=== PATIENT | female | born 1945 | race Caucasian/White ===

== ENCOUNTER 2023-08-06 11:30 | Emergency (ER) | payer MEDICARE, SELFPAY ==
[2023-08-06] VITALS (8 sets, daily range): BP systolic 75–115; BP diastolic 38–64; PULSE 52–88; RESP 11–20; TEMP 36.1–36.7; O2SAT 95–97; BMI 22.4
--- NOTE | 2023-08-06 11:27 | ECG_ITS ---
APPROVED REPORT Exam: Resting ECG HR:48 bpm ECG Measurements Heart Rate 48 AXES QRSd 153 QRS -25 QT 518 T 68 QTc 484 Conclusion ATRIAL FIBRILLATION WITH SLOW VENTRICULAR RESPONSE LEFT BUNDLE BRANCH BLOCK [120+ ms QRS DURATION, 80+ ms Q/S IN V1/V2, 85+ ms R IN I/aVL/V5/V6] ABNORMAL ECG UNCONFIRMED REPORT Electronically signed by : Anderson Rendon MD 08/07/2023 19:42:44
--- NOTE | 2023-08-06 11:39 | PC.NURSE ---
Dr. Mariee at BS for pt eval
--- NOTE | 2023-08-06 11:45 | PC.NURSE ---
DR PACHECO AT BEDSIDE
--- NOTE | 2023-08-06 11:54 | PC.NURSE ---
pt given glass of water
--- NOTE | 2023-08-06 11:58 | XR_ITS ---
PROCEDURE INFORMATION: Exam: XR Chest Exam date and time: 08/06/2023 12:20 PM Age: 77 years old Clinical indication: Other: Syncope TECHNIQUE: Imaging protocol: Radiologic exam of the chest. Views: 1 view. COMPARISON: No relevant prior studies available. FINDINGS: Lungs: Unremarkable. No consolidation. Pleural spaces: Unremarkable. No pleural effusion. No pneumothorax. Heart/Mediastinum: Aortic atherosclerosis. No cardiomegaly. Bones/joints: Unremarkable. IMPRESSION: No acute findings.
--- NOTE | 2023-08-06 11:59 | HMH.EDGENADL ---
Discharge Plan Disposition Patient Disposition: Home, Self-Care Condition: Good Activity Restrictions/Add. Instructions Additional Instructions/Restrictions: Please follow-up with your primary care provider.Please return to the emergency department if you experience any new or worsening symptoms. Clinical Impressions Clinical Impression: Syncope due to orthostatic hypotension Instructions Patient Instructions: DI for Syncope in Adults (Fainting), DI for Syncope in Children (Fainting) Discharge ED Provider: Wilfred Mariee Adult HPI General Chief complaint: Syncope Stated complaint: hypotension Time Seen by Provider: 08/06/23 11:56 Mode of Arrival: EMS Source of Information: Patient and EMS Limitations: No Limitations Description of Symptoms (Recalled from ER Triage Doc. by RN): PT BROUGHT IN VIA EMS, SYNCOPAL EPISODE WITH HYPOTENSION AND BRADYCARDIA. PT REPORTS SIMILAR EPISODES THIS WEEKEND. PT REPORTS NEW CHANGES IN BLOOD PRESSURE MEDS RECENTLY. PT DENIES CHEST PAIN, REPORTS SHORTNESS OF BREATH History of Present Illness HPI narrative: The patient presents with a chief complaint of low blood pressure and dizziness. She reports experiencing dizziness after climbing a set of stairs and taking a while to recover. Despite lying down, she continued to experience symptoms of low blood pressure. The patient lost consciousness while talking to an attendant and had a weak pulse. The patient has a history of blood pressure issues for the last four months. She has undergone two 24-hour urine collections and was suspected to have Vick's disease, which was later ruled out. 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 She has been in communication with an bowling ball engraver and is also a stage 3 kidney patient. The patient has bladder cancer and is currently undergoing chemotherapy. The patient's blood pressure has been stable this month, but she has been mostly resting. There have been no recent changes in her medication doses. She had a tumor removed and then had her first 24-hour urine collection, which revealed a high norepinephrine level of 800. A steroid pill and blood draw showed normal cortisol levels, but the cause of her blood pressure fluctuations remains unknown. The patient took her morning medications and subsequently lost consciousness for a few minutes, feeling woozy afterward. She denies experiencing palpitations or chest pain but reports feeling thirsty and woozy. Her current heart rate is 56. Related Data Allergies Allergy/AdvReac Type Severity Reaction Status Date / Time Sulfa (Sulfonamide Allergy Verified 08/06/23 11:42 Antibiotics) [facility] Disclaimer: The information contained in this section may have been updated after the patient was seen, as this information can be updated by other users. Social History Smoking Status: Never smoker alcohol intake: former year quit: [employer] current occupational status: retired Travel in the last 8 weeks: None ROS Obtained: Yes Systems reviewed as appropriate & no additional complaints except as documented As per HPI Physical Exam General General appearance: alert, in no apparent distress and other (Drowsy but arousable on initial assessment) Head Head exam: atraumatic and normocephalic Eye Eye exam: Present normal appearance Neck Neck exam: Present normal inspection Chest Chest inspection: Present normal inspection and symmetric chest wall rise Respiratory Respiratory exam: Present normal lung sounds bilaterally; Absent respiratory distress Cardiovascular Cardiovascular exam: Present regular rate and bradycardia Abdominal Exam Abdominal exam: Present soft Extremities Exam Extremities exam: Present other (No cervical spinal tenderness) Neurological Exam Neurological exam: Present alert and oriented X3 Psychiatric Psychiatric exam: Present normal affect and normal mood Skin Skin exam: Present warm and d
--- NOTE | 2023-08-06 12:04 | PC.NURSE ---
XR AT BEDSIDE
[2023-08-06 12:07] LABS: Basophils % 0.4 % (0.1-2.0); Eosinophils # 0.1 K/mm3 (0.0-0.4); Eosinophils % 2.2 % (0.1-12.0); Hematocrit 30.9 % (37.0-47.0); Hemoglobin 9.8 g/dL (12.2-16.2); Lymphocytes # 1.5 K/mm3 (0.7-4.5); Lymphocytes % 33.8 % (10-50); Mean Corpuscular HGB Conc 31.9 g/dL (31.8-35.4); Mean Corpuscular Hemoglobin 29.9 pg (27.0-31.2); Mean Corpuscular Volume 93.8 fl (81-99); Mean Platelet Volume 7.6 fl (7.4-10.4); Monocytes # 0.1 K/mm3 (0.1-1.0); Monocytes % 2.5 % (1.7-9.3); Neutrophils # 2.8 K/mm3 (1.8-7.8); Neutrophils % 61.1 % (37.0-80.0); Platelet Count 298 K/mm3 (142-424); Red Blood Count 3.29 M/mm3 (4.20-5.40); Red Cell Distribution Width 14.4 % (11.5-17.5); White Blood Count 4.6 K/mm3 (4.8-10.8)
[2023-08-06 12:08] LABS: Chloride 102 mmol/L (98-107); Potassium 4.7 mmoL/L (3.5-5.1); Sodium 129 mmol/L (136-145)
[2023-08-06 12:11] LABS: Alanine Aminotransferase 31 U/L (12-78); Albumin Level 3.3 g/dl (3.5-5.0); Albumin/Globulin Ratio 1.4 (1.1-1.8); Alkaline Phosphatase 60 U/L (38-126); Anion Gap 11.7 mEq/L (5-15); Aspartate Amino Transferase 26 U/L (14-36); Bilirubin,Total 0.6 mg/dl (0.2-1.3); Blood Urea Nitrogen 18 mg/dl (7-17); Carbon Dioxide 20 mmol/L (22.0-30.0); Creatinine Clearance Estimated 29 mL/min (50-200); Estimated Glomerular Filt Rate 33 ml/min (>60); GFR (African American) 41 ML/MIN (>60); Globulin 2.4 g/dL (1.3-3.2); Phosphorous 4.9 mg/dl (2.5-4.5); Total Protein,Serum 5.7 g/dl (6.3-8.2)
[2023-08-06 12:12] LABS: Calcium 7.7 mg/dl (8.4-10.2); Glucose 123 mg/dl (74-100); Magnesium 1.7 mg/dl (1.6-2.3)
--- NOTE | 2023-08-06 12:23 | PC.NURSE ---
Pt provided with pillow for comfort
--- NOTE | 2023-08-06 12:25 | PC.NURSE ---
notified ER MD Mariee of pt reporting nausea, verbal order for zofran obtained per IV.
[2023-08-06 12:29] LABS: Free T4 (Free Thyroxine) 1.67 ng/dl (0.78-2.19)
--- NOTE | 2023-08-06 12:29 | PC.NURSE ---
pt medicated per DEC emesis bag available at BS to PT, call light in reach. pt had cool rag on forehead pt family at BS
[2023-08-06 12:34] LABS: Troponin I < 0.01 ng/ml (0.00-0.034)
--- NOTE | 2023-08-06 12:35 | PC.NURSE ---
called [facility] for medical records
[2023-08-06 12:42] LABS: Thyroid Stimulating Hormone 4.54 uIU/mL (0.465-4.68)
--- NOTE | 2023-08-06 12:59 | PC.NURSE ---
Rounded on pt. Family concerned about pt nausea. Pt/family made aware of need for urine sample. RN and MD made aware of pt nausea.
--- NOTE | 2023-08-06 13:37 | PC.NURSE ---
Pt ambulated to bathroom x2 person assist. Pt attempted to obtain urine sample for quite a few minutes and was unable to. Pt assisted back to bed with use of wheelchair.
--- NOTE | 2023-08-06 14:25 | PC.NURSE ---
pt's family concerned regarding pt not urinating since this AM. She has had a total of 1,500 ml of IVF. notified of this and new order for 1L NS. Also will obtain a bladder scan d/t concern she is in retention.
--- NOTE | 2023-08-06 14:27 | PC.NURSE ---
BLADDER SCAN 208MLS, NOTIFIED
--- NOTE | 2023-08-06 14:42 | PC.NURSE ---
Pt provided with warm blanket
[2023-08-06 15:01] LABS: Troponin I < 0.01 ng/ml (0.00-0.034)
--- NOTE | 2023-08-06 15:03 | PC.NURSE ---
Pt daughter came to nurses station and advised that they had been worried about pt ankles swelling, and were also wanting to know about the possibility of a heart echo. Educated on not having the availability to perform a heart echo on weekends. Reassured pt daughter we would speak with the MD about pt ankles swelling.
--- NOTE | 2023-08-06 15:09 | PC.NURSE ---
Dr. Mariee at to speak with pt/family about POC
--- NOTE | 2023-08-06 15:27 | PC.NURSE ---
Dr. Mariee s/w with the pt's family with more question and concerns
--- NOTE | 2023-08-06 15:40 | PC.NURSE ---
PT AMBULATED WITHOUT ASSISTANCE, TOLERATED WELL
== END 2023-08-06 16:10 | disposition home or self-care (01) ==
PROVIDERS: Emergency Provider Emergency Medicine
DX: E87.1 Hypo-osmolality and hyponatremia (principal); I95.1 Orthostatic hypotension; R00.1 Bradycardia, unspecified
CPT/HCPCS: 71045; 80053; 83735; 84100; 84439; 84443; 84484; 85025; 93005; 96361; 96374; 99284; J2405